=== PATIENT | male | born 1980 | race Caucasian/White ===

== ENCOUNTER 2025-01-15 09:41 | Emergency (ER) | payer OTHER ==
[~2025-01-15] VITALS: Ht 182.9 cm; Wt 92.4 kg
[2025-01-15 09:51] VITALS: BP 157/107; PULSE 86; TEMP 98; O2SAT 99
--- NOTE | 2025-01-15 10:00 | Physician Documentation ---
History of Present Illness ~ Chief Complaint: Ankle pain Stated Complaint: R ANKLE PAIN Time Seen by MD: 09:54 HPI 44-year-old male presents to the emergency department status post worker's injury. Had the ladder that he was on a proximally feet up in the air slipped off from underneath him. He rode the ladder down and tingling in his right ankle upon hitting the ground. Pain and swelling to the right ankle without gross deformity yet TTP to heel. No lower back pain. No prior history of the same. He is accompanied to Emergency Department by employer. Medication Reconciliation Allergies: Coded Allergies: No Known Allergies (Unverified , 01/15/25) Review of Systems All Other Systems at this time: Reviewed and Negative Musculoskeletal: Reports: see HPI Physical Exam Vital Signs: RN Vital Signs have been reviewed: Yes, Temperature: 98.0, Source: Oral, Heart Rate: 86, Respiratory Rate: 16, BP: 157/107, Pulse Oximetry: 99, Weight: 92.400 Oxygen Flow Rate: 0 General Appearance: alert, WD/WN, mild distress Head: normal inspection EENT: PERRL/EOMI Back: normal inspection Pelvis: normal Hips: normal inspection Legs: normal inspection Achilles Tendon: normal Feet: bone tenderness, limited ROM, pain, soft tissue tenderness, swelling Distal Function: no motor deficit, no sensory deficit, normal capillary refill Skin: normal color Progress Results/Orders Results/Orders Orders - ALTON JAFFE PAC Ankle, Complete(3vw Min) (01/15/25 09:54) Os Calcis (Heel) (01/15/25 ) Ct Lower Extremity (01/15/25 10:11) * Npo Now * (01/15/25 10:47) Ortho Orders (01/15/25 ) Morphine 2mg/Ml Inj. (Morphine Inj.) (01/15/25 12:20) Completed Orders - ALTON JAFFE PAC Ankle, Complete(3vw Min) (01/15/25 09:54) Os Calcis (Heel) (01/15/25 ) Ct Lower Extremity (01/15/25 10:11) Morphine 4mg/Ml Inj. (Morphine Inj.) (01/15/25 10:50) Morphine 2mg/Ml Inj. (Morphine Inj.) (01/15/25 11:00) Morphine 4mg/Ml Inj. (Morphine Inj.) (01/15/25 12:15) Medications Received in ER Medications (Trade) Dose Ordered Sig/Scott Route PRN Reason Start Time Stop Time Status Last Admin Dose Admin (morphine inj.) 4 mg ONCE ONCE IV 01/15/25 11:00 01/15/25 11:01 DC 01/15/25 11:07 4 MG Vital Signs 01/15/25 01/15/25 01/15/25 09:51 11:07 11:35 Temp 98.0 Pulse 86 Resp 16 19 20 B/P (MAP) 157/107 Pulse Ox 99 O2 Flow Rate 0 Medical Decision Making Additional information obtaine: N/A Findings Examination history warrant x-ray imaging to evaluate for fracture, dislocation or other bony pathology. Patient had requiring immediate pain management. He is resting comfortably grossly neurologically intact. X-ray imaging consistent with a calcaneal fracture. We will get dedicated film of the calcaneus and CT imaging to evaluate for extra-articular versus intra-articular fracture. CT results reviewed. Discussed case with the on-call orthopedist Dr. Lara who was referred me to the dj instructor Dr. Jared Thorne> discussed case with the dj instructor who is requesting CT imaging tests. Patient remains NPO in the waiting follow up for care plan. Out pt clinic follow up. Patient is discharged with a short-leg bulky Mc splint, crutches to be nonweightbearing and pain management. I have aligned him with the clinic of Dr Jared Reyes. General Diff Dx:Considerations: Include: Other (Noncontributory) Knee Diff Dx:Considerations: Include: Other (Noncontributory) Ankle Diff Dx:Considerations: Include: Abrasion, Arthritis, Contusion, DJD, Fracture-metatarsal, Fracture-fibula, Fracture-tarsal, Fracture-tibia, Hematoma, Laceration, Malunion, Neurovascular injury, Nonunion, Open fracture, Osteomyelitis, Rheumatoid arthritis, Sprain, Septic, Other Foot Diff Dx:Considerations: Include: Other (Noncontributory) Toe Diff Dx:Considerations: Include: Other (Noncontributory) Departure Disposition: HOME / SELF CARE / HOMELESS Impression: Primary Impression: Comminuted calcaneus fracture Condition: Stable Discharge Instructions: Calcaneal Fracture Repair Surgery Additional Instructions: Today in the emergency department you were noted to have a fracture of the right calcaneus that requires podiatry follow up with with likely surgery. Please call the office of Dr. Jared Reyes at [phone]. Please obtain prescriptions and take as directed for pain. Please remain non weight bearing and keep your splint clean and dry and ankle e levated. Make follow up appointment with your worker's injury office and advised the of your current status. No return to work date provided at this time. Thank you for visiting emergency department [facility]. Departure Forms: Excuse form Work or School Excused From: Work Excuse beginning now through the following date: Feb 25, 2025 Referrals: NO PRIMARY CARE PROVIDER (PCP) JARED STACY DPM 1 week 44-year-old male closed right intra-articular comminuted calcaneus fracture. Thank you for the consultation [facility] Emergency Department Prescriptions Hydrocodone Bit/Acetaminophen 5/325 MG ([place] 5/325 MG) 5 Mg/325 Mg Tablet 1-2 TAB PO Q4-6 hours PRN for pain, #20 TAB Prov: ALTON JAFFE 01/15/25 Ibuprofen* (Motrin*) 400 Mg Tablet 400 MG PO Q6H for 10 Days, #30 TAB Prov: ALTON JAFFE 01/15/25 Education Educated: Patient Educated regarding: diagnosis, treatment, prognosis, need for follow up Signature Scribe Signature: . Attestation: . ALTON JAFFE Jan 15, 2025 10:00
--- NOTE | 2025-01-15 10:26 | RADIOLOGY REPORT ---
CLINICAL INDICATION: ANKLE PAIN TECHNIQUE: Right DI ANKLE, COMPLETE(3VW MIN), DI OS CALCIS (HEEL) Comparison: None FINDINGS/IMPRESSION: : Displaced fracture of the mid calcaneus. Subtle minimally displaced fracture of the lateral malleolus.
--- NOTE | 2025-01-15 10:51 | RADIOLOGY REPORT ---
INDICATION: Fracture calcaneus COMPARISON: DI ANKLE, COMPLETE(3VW MIN) on DOS: 01/15/25 TECHNIQUE: CT of the right ankle was performed without contrast. Volume transverse images were obtained and reconstructed in multiple planes using bone and soft tissue algorithms. Radiation Dose Information: CT Dose: CTDI volume is 14.36 mGy. Dose-length product is 311.04 mGy*cm FINDINGS: Highly comminuted fracture involving the anterior, body, and posterior aspect of the calcaneus. Extension into the posterior and middle subtalar facets. Articular step deformity at the posterior facet measuring 7 mm. No additional fracture. Ankle mortise is congruent and talar dome intact. IMPRESSION: Highly comminuted calcaneal fracture. All CT scans at this medical facility are performed using dose modulation techniques as appropriate to a performed exam including the following: Automated exposure control was utilized; adjustment of the MA and/or KV according to patient size; and use of iterative reconstruction technique.
[2025-01-15] MEDS: morphine 4 MG/ML inj SYRINge IV ONE ×2 (11:12→12:21)
[2025-01-15 12:21] VITALS: RESP 18
[2025-01-15] MEDS ORDERED: HYDR-3965 PO (12:21)
[2025-01-15] MEDS ORDERED: IBUP-1984 PO (12:21)
== END 2025-01-15 13:19 | disposition home or self-care (01) ==
LOC: ER 09:42
DX: S92.001A Unspecified fracture of right calcaneus, initial encounter for closed fracture (principal); W01.0XXA Fall on same level from slipping, tripping and stumbling without subsequent striking against object, initial encounter; Y93.89 Activity, other specified; Y92.89 Other specified places as the place of occurrence of the external cause; Y99.8 Other external cause status
CPT/HCPCS: 29515; 73610; 73650; 73700; 96374; 96376; 99285; J2270; A6446; A6449